=== PATIENT | female | born 1970 | race Caucasian/White ===

== ENCOUNTER 2020-11-01 09:08 | Emergency (ER) | payer BC, OTHER ==
[2020-11-01 09:21] VITALS: RESP 18
--- NOTE | 2020-11-01 10:14 | ED ---
Back Pain HPI - General Chief Complaint: Back Pain/Injury Stated Complaint: post stem cell transplant, back pain Time Seen by Provider: 11/01/20 09:33 Source: patient, RN notes reviewed Limitations: no limitations - History of Present Illness Initial Comments: This a 50-year-old female presents emergency Department with chief complaint of back pain. Patient states that she has [facility] [place]. Patient states his happened on October 18. She states she had no issues over the last few days she developed some GI discomfort states that she had nausea, diarrhea. Patient states that she started having low back pain and which she states she had bodyaches and was concerned this may be related denies any bowel bladder incontinence or retention she states she has some pain and recent her legs which is normal. - Related Data Home Medications Medication Instructions Recorded Confirmed Acetaminophen Tab [Tylenol Tab] 1,000 mg PO Q6HR PRN 11/01/20 11/01/20 Efa Sirt 3 tab PO BID 11/01/20 11/01/20 Fluticasone Nasal [place] [Flonase 2 spr EA NOSTRIL DAILY PRN 11/01/20 11/01/20 Nasal [place]] Glucos Sul 2Kcl/MSM/Chond/C/Mn 1 cap PO BID 11/01/20 11/01/20 [Glucosamine Chondroitin Cap] Gralise 300mg 300 mg PO HS 11/01/20 11/01/20 HYDROcodone/APAP 5-325MG [[place] 1 - 2 tab PO TID PRN 11/01/20 11/01/20 5-325] Omeprazole 20 mg PO DAILY 11/01/20 11/01/20 Vasculosirt 5 tab PO DAILY 11/01/20 11/01/20 hydroCHLOROthiazide [Hydrodiuril] 25 mg PO DAILY PRN 11/01/20 11/01/20 tiZANidine [Zanaflex] 4 mg PO HS 11/01/20 11/01/20 Allergies Allergy/AdvReac Type Severity Reaction Status Date / Time Penicillins Allergy Unknown Verified 11/01/20 10:10 Review of Systems ROS Statement: Those systems with pertinent positive or pertinent negative responses have been documented in the HPI. ROS Other: All systems not noted in ROS Statement are negative. Past Medical History Past Medical History: Osteoarthritis (OA) Additional Past Medical History / Comment(s): bulging discs in neck and back and pinched nerves. bone marrow transplant. History of Any Multi-Drug Resistant Organisms: None Reported Past Surgical History: Cholecystectomy, Hysterectomy Additional Past Surgical History / Comment(s): bone marrow transplant, ovarian cyst removal Past Psychological History: No Psychological Hx Reported Smoking Status: Current every day smoker Past Alcohol Use History: None Reported Past Drug Use History: None Reported General Exam Limitations: no limitations General appearance: alert, in no apparent distress Head exam: Present: atraumatic, normocephalic, normal inspection Respiratory exam: Present: normal lung sounds bilaterally. Absent: respiratory distress, wheezes, rales, rhonchi, stridor Cardiovascular Exam: Present: regular rate, normal rhythm, normal heart sounds. Absent: systolic murmur, diastolic murmur, rubs, gallop, clicks GI/Abdominal exam: Present: soft, normal bowel sounds. Absent: distended, tenderness, guarding, rebound, rigid Extremities exam: Present: normal inspection, full ROM, normal capillary refill, other (Lower extremity neurovascular intact equal and equal warmth). Absent: tenderness, pedal edema, joint swelling, calf tenderness Back exam: Present: full ROM, tenderness, paraspinal tenderness. Absent: vertebral tenderness Neurological exam: Present: alert, oriented X3 Course Vital Signs 11/01/20 09:13 Temperature 98.6 F Pulse Rate 102 H Respiratory 18 Rate Blood Pressure 157/94 O2 Sat by Pulse 96 Oximetry Medical Decision Making - Medical Decision Making I did update patient's physician who performed a procedure there are no inflammatory changes CRP is essentially negative. Patient has no fever. Patient most likely of viral GI, exacerbation of her back pain. Patient will follow-up in office and will be contacted by physician. - Lab Data Result diagrams: 11/01/20 10:04 11/01/20 10:04 Lab Results 11/01/20 11/01/20 11/01/20 Range/Units 10:04 10:04 10:04 WBC 11.1 H (3.8-10.6) k/uL RBC 4.69 (3.80-5.40) m/uL Hgb 14.6 (11.4-16.0) gm/dL Hct 42.5 (34.0-46.0) % MCV 90.8 (80.0-100.0) fL MCH 31.1 (25.0-35.0) pg MCHC 34.2 (31.0-37.0) g/dL RDW 12.6 (11.5-15.5) % Plt Count 368 (150-450) k/uL MPV 7.2 Neutrophils % 72 % Lymphocytes % 21 % Monocytes % 4 % Eosinophils % 1 % Basophils % 0 % Neutrophils # 8.0 H (1.3-7.7) k/uL Lymphocytes # 2.4 (1.0-4.8) k/uL Monocytes # 0.5 (0-1.0) k/uL Eosinophils # 0.1 (0-0.7) k/uL Basophils # 0.0 (0-0.2) k/uL Sodium 139 (137-145) mmol/L Potassium 4.5 (3.5-5.1) mmol/L Chloride 103 (98-107) mmol/L Carbon Dioxide 27 (22-30) mmol/L Anion Gap 9 mmol/L BUN 18 H (7-17) mg/dL Creatinine 0.62 (0.52-1.04) mg/dL Est GFR (CKD-EPI)AfAm >90 (>60 ml/min/1.73 sqM) Est GFR (CKD-EPI)NonAf >90 (>60 ml/min/1.73 sqM) Glucose 107 H (74-99) mg/dL Plasma Lactic Acid Augie 1.0 (0.7-2.0) mmol/L Calcium 9.8 (8.4-10.2) mg/dL Total Bilirubin 0.3 (0.2-1.3) mg/dL AST 34 (14-36) U/L ALT 57 H (4-34) U/L Alkaline Phosphatase 105 (38-126) U/L C-Reactive Protein 3.6 H (<1.0) mg/dL Total Protein 7.7 (6.3-8.2) g/dL Albumin 4.8 (3.5-5.0) g/dL Disposition Clinical Impression: Back pain, Viral illness Disposition: HOME SELF-CARE Condition: Stable Instructions (If sedation given, give patient instructions): Back Pain (ED) Additional Instructions: Please return to the Emergency Department if symptoms worsen or any other concerns. Is patient prescribed a controlled substance at d/c from ED?: No Referrals: Ze Muhammad MD [Primary Care Provider] - 1-2 days Time of Disposition: 13:06
[2020-11-01 10:29] LABS: Basophils % (A) 0 %; Eosinophils # (A) 0.1 k/uL (0-0.7); Eosinophils % (A) 1 %; HCT 42.5 % (34.0-46.0); HGB 14.6 gm/dL (11.4-16.0); Lymphocytes # (A) 2.4 k/uL (1.0-4.8); Lymphocytes % (A) 21 %; MCH 31.1 pg (25.0-35.0); MCHC 34.2 g/dL (31.0-37.0); MCV 90.8 fL (80.0-100.0); Mean Platelet Volume 7.2; Monocytes # (A) 0.5 k/uL (0-1.0); Monocytes % (A) 4 %; Neutrophils % (A) 72 %; Platelet Count 368 k/uL (150-450); RBC 4.69 m/uL (3.80-5.40); RDW 12.6 % (11.5-15.5); WBC 11.1 k/uL (3.8-10.6)
[2020-11-01] MEDS ORDERED: HYDROmorphone 1 MG/ML 1 ML SYRINGE IVP STA ×2 (10:40→13:04)
[2020-11-01] MEDS ORDERED: ONDANSETRON 4 MG/2 ML VIAL IVP STA (10:40)
[2020-11-01 10:49] LABS: ALT 57 U/L (4-34); AST 34 U/L (14-36); African American GFR (CKD) >90 (>60 ml/min/1.73 sqM); Albumin 4.8 g/dL (3.5-5.0); Alkaline Phosphatase 105 U/L (38-126); Anion Gap 9 mmol/L; Blood Urea Nitrogen 18 mg/dL (7-17); C Reactive Protein 3.6 mg/dL (<1.0); Calcium 9.8 mg/dL (8.4-10.2); Carbon Dioxide 27 mmol/L (22-30); Chloride 103 mmol/L (98-107); Glucose 107 mg/dL (74-99); Non-African American GFR(CKD) >90 (>60 ml/min/1.73 sqM); Potassium 4.5 mmol/L (3.5-5.1); Sodium 139 mmol/L (137-145); Total Bilirubin 0.3 mg/dL (0.2-1.3); Total Protein 7.7 g/dL (6.3-8.2)
--- NOTE | 2020-11-01 11:43 | CT ---
EXAMINATION TYPE: CT lumbar spine w con DATE OF EXAM: 11/01/2020 COMPARISON: None HISTORY: Post stem cell transplant, pain CT DLP: [id number] mGycm Automated exposure control for dose reduction was used. CONTRAST: CT scan of the lumbar is performed with IV Contrast, patient injected with 100 mL of Isovue 300. Enhanced CT of the lumbar spine was performed. Bone and soft tissue window settings are submitted as well as coronal and sagittal reconstructions. L1-L2: Normal disc space height. No disc herniation protrusion or central stenosis. No facet joint arthropathy. No evidence for foraminal encroachment. L2-L3: Normal disc space height. No disc herniation protrusion or central stenosis. No facet joint arthropathy. No evidence for foraminal encroachment. L3-L4: Normal disc space height. No disc herniation protrusion or central stenosis. No facet joint arthropathy. No evidence for foraminal encroachment. L4-L5: Moderate degenerative disc space narrowing. Circumferential disc bulge greatest posteriorly wi th partial encapsulating spur. Effacement ventral thecal sac with [id number] central stenosis. L5-S1: Mild degenerative disc space narrowing. Posterior disc bulge with effacement of the ventral th ecal sac. Bilateral lateral recess stenosis suggested. No evidence for central stenosis or oscar shaji iation. No evidence for discitis or paraspinal abscess. IMPRESSION: 1. Degenerative disc disease L4-5 L5-S1. Central stenosis at L4-5. Bilateral lateral recess stenosis at L5-S1.
[2020-11-01 13:19] LABS: Erythrocyte Sedimentation Rate 23 mm/hr (0-20)
[2020-11-01 13:54] VITALS: BP 133/87; PULSE 82; TEMP 98
== END 2020-11-01 13:54 | disposition home or self-care (01) ==
LOC: EC 09:08
DX: B34.9 Viral infection, unspecified (principal); M54.5 Low back pain; M19.90 Unspecified osteoarthritis, unspecified site; F17.200 Nicotine dependence, unspecified, uncomplicated; Z79.899 Other long term (current) drug therapy; Z88.0 Allergy status to penicillin; Z94.84 Stem cells transplant status
CPT/HCPCS: 36415; 80053; 85652; 83605; 85025; 86140; 72132; 96374; 96375; 96376; 99284; J2405; J1170; Q9967

== ENCOUNTER 2020-11-09 23:41 | Emergency (ER) | payer BC ==
[2020-11-09 23:49] VITALS: TEMP 98
[2020-11-10] MEDS ORDERED: ORPHENADRINE 30 MG/ML 2 ML VIAL IM STA (01:07)
[2020-11-10] MEDS ORDERED: HYDROmorphone 1 MG/ML 1 ML SYRINGE IM STA (01:07)
[2020-11-10 01:29] VITALS: RESP 18
[2020-11-10] MEDS ORDERED: HYDROmorphone 0.5 MG/0.5 ML SYRINGE IM STA (02:36)
--- NOTE | 2020-11-10 02:40 | ED ---
General Adult HPI - General Chief complaint: Back Pain/Injury Stated complaint: Back Pain Time Seen by Provider: 11/10/20 00:25 Source: patient Mode of arrival: ambulatory Limitations: no limitations - History of Present Illness Initial comments: 50-year-old female with a past medical history of chronic back pain presents to the emergency room for a chief complaint of back pain. Patient reports that about 3 weeks ago she had a stem cell transplant into her vertebrae to help with her pain. However patient reports that it has not been helping. Patient states she is taking pain medications at home but is supposed to be getting off of them because of the stem cell transplant. Patient states tonight she is having too much pain to sit down and so presented to the emergency room. Patient denies any weakness of the legs, bladder bowel changes, saddle anesthesia, or fevers. Patient has been taking steroids which doesn't seem to be helping. She is also a [place] at home.Patient has no other complaints at this time including shortness of breath, chest pain, abdominal pain, nausea or vomiting, headache, or visual changes. - Related Data Home Medications Medication Instructions Recorded Confirmed Acetaminophen Tab [Tylenol Tab] 1,000 mg PO Q6HR PRN 11/01/20 11/01/20 Efa Sirt 3 tab PO BID 11/01/20 11/01/20 Fluticasone Nasal [place] [Flonase 2 spr EA NOSTRIL DAILY PRN 11/01/20 11/01/20 Nasal [place]] Glucos Sul 2Kcl/MSM/Chond/C/Mn 1 cap PO BID 11/01/20 11/01/20 [Glucosamine Chondroitin Cap] Gralise 300mg 300 mg PO HS 11/01/20 11/01/20 HYDROcodone/APAP 5-325MG [[place] 1 - 2 tab PO TID PRN 11/01/20 11/01/20 5-325] Omeprazole 20 mg PO DAILY 11/01/20 11/01/20 Vasculosirt 5 tab PO DAILY 11/01/20 11/01/20 hydroCHLOROthiazide [Hydrodiuril] 25 mg PO DAILY PRN 11/01/20 11/01/20 tiZANidine [Zanaflex] 4 mg PO HS 11/01/20 11/01/20 Allergies Allergy/AdvReac Type Severity Reaction Status Date / Time Penicillins Allergy Unknown Verified 11/09/20 23:49 Review of Systems ROS Statement: Those systems with pertinent positive or pertinent negative responses have been documented in the HPI. ROS Other: All systems not noted in ROS Statement are negative. Past Medical History Past Medical History: Osteoarthritis (OA) Additional Past Medical History / Comment(s): bulging discs in neck and back and pinched nerves. bone marrow transplant. History of Any Multi-Drug Resistant Organisms: None Reported Past Surgical History: Cholecystectomy, Hysterectomy Additional Past Surgical History / Comment(s): bone marrow transplant, ovarian cyst removal Past Psychological History: No Psychological Hx Reported Smoking Status: Current every day smoker Past Alcohol Use History: None Reported Past Drug Use History: None Reported General Exam Limitations: no limitations General appearance: alert, in no apparent distress Head exam: Present: atraumatic, normocephalic, normal inspection Eye exam: Present: normal appearance, PERRL, EOMI. Absent: scleral icterus, conjunctival injection, periorbital swelling ENT exam: Present: normal exam, mucous membranes moist Neck exam: Present: normal inspection, full ROM. Absent: tenderness Respiratory exam: Present: normal lung sounds bilaterally. Absent: respiratory distress, wheezes Cardiovascular Exam: Present: regular rate, normal rhythm, normal heart sounds GI/Abdominal exam: Present: soft, normal bowel sounds. Absent: distended, tenderness, guarding, rebound, rigid Back exam: Present: vertebral tenderness (Right-sided paraspinal tenderness.) Course Vital Signs 11/09/20 11/10/20 23:46 01:28 Temperature 98 F Pulse Rate 105 H 103 H Respiratory 20 18 Rate Blood Pressure 151/92 115/87 O2 Sat by Pulse 98 98 Oximetry Medical Decision Making - Medical Decision Making Patient presents for back pain that is chronic in nature. Pain has persisted even after stem cell transplant. Patient was uncomfortable tonight so presented to the emergency room. Patient did have a CAT scan several days ago for similar complaints. This showed degenerative disc disease and central stenosis. There is also bilateral lateral recess stenosis. Patient has not had any fevers. Patient was given pain medication and did have significant improvement symptoms. Able to sit comfortably. Patient will be given one more dose of pain medication before discharge home. Patient will follow up with her doctor tomorrow. Disposition Clinical Impression: Back pain Disposition: HOME SELF-CARE Condition: Good Instructions (If sedation given, give patient instructions): Acute Low Back Pain (ED) Additional Instructions: Please follow-up with your doctor tomorrow. If you have worsening symptoms return to the emergency room. Is patient prescribed a controlled substance at d/c from ED?: No Referrals: Ze Muhammad MD [Primary Care Provider] - 1-2 days Time of Disposition: 02:40
[2020-11-10 02:55] VITALS: BP 130/71; PULSE 80
== END 2020-11-10 02:55 | disposition home or self-care (01) ==
LOC: EC 23:41
DX: M54.9 Dorsalgia, unspecified (principal); G89.29 Other chronic pain; M19.90 Unspecified osteoarthritis, unspecified site; F17.200 Nicotine dependence, unspecified, uncomplicated; Z88.0 Allergy status to penicillin; Z90.49 Acquired absence of other specified parts of digestive tract; Z90.710 Acquired absence of both cervix and uterus
CPT/HCPCS: 99283; 96372 ×3; J2360; J1170 ×2

== ENCOUNTER 2020-11-15 20:18 | Emergency (ER) | payer BC ==
[2020-11-15 21:03] VITALS: TEMP 98.4
[2020-11-15] MEDS ORDERED: DIAZEPAM 5 MG/ML 2 ML INJ IVP PRN (21:53)
[2020-11-15] MEDS ORDERED: ONDANSETRON 4 MG/2 ML VIAL IVP STA (21:53)
[2020-11-15] MEDS ORDERED: KETOROLAC 15 MG/ML 1 ML VIAL IVP STA (21:53)
[2020-11-15] MEDS ORDERED: diphenhydrAMINE 50 MG/ML 1 ML VIAL IVP PRN (21:53)
[2020-11-15] MEDS ORDERED: HYDROmorphone 1 MG/ML 1 ML SYRINGE IVP PRN (21:53)
[2020-11-15] MEDS ORDERED: HYDROmorphone 1 MG/ML 1 ML SYRINGE IVP STA (21:53)
[2020-11-15] MEDS ORDERED: SODIUM CHLORIDE 0.9% 1,000 ML IV STA ×2 (21:53)
[2020-11-15] MEDS ORDERED: VANCOMYCIN IV PER PHARMACY 1 EACH MISC MISCELLANE PRN (21:55)
--- NOTE | 2020-11-15 22:08 | ED ---
Recheck HPI - General Chief Complaint: Recheck/Abnormal Lab/Rx Stated Complaint: Post Op Infection, sent by dr to be admitted Time Seen by Provider: 11/15/20 21:35 Source: patient, RN notes reviewed, old records reviewed Mode of arrival: ambulatory Limitations: no limitations - History of Present Illness Initial Comments: This is a 50-year-old female presenting with acute on chronic back pain today. Back pain that has been steadily increasing as of late. Patient does follow with pain management and on 10/18/20 had a bone marrow transplant for pain control. Patient does have history of disc disease. Patient to persistent pain and recent MRI home and was told by prescribing physician to come to the ER for further management. Patient denying any fevers has occasionally had chills. No loss of bowel or bladder. She does get numbness and tingling down both legs Complaint: needs IV antibiotics, other (Evaluation of MRI findings) -: days(s) Initial Visit For: other (Back pain) Returns Today for: Called Because of Abnormal Lab/Test (Abnormal MRI), needs IV antibiotics, persistent/worsening pain related to initial visit Symptoms Since Prior Visit: worsening pain Context: called for abnormal lab result Associated Symptoms: chills Treatments Prior to Arrival: home treatments, Given Pain Meds on - Related Data Home Medications Medication Instructions Recorded Confirmed Gralise 300mg 300 mg PO HS 11/01/20 11/15/20 Omeprazole 20 mg PO DAILY 11/01/20 11/15/20 hydroCHLOROthiazide [Hydrodiuril] 25 mg PO DAILY PRN 11/01/20 11/15/20 tiZANidine [Zanaflex] 4 mg PO HS 11/01/20 11/15/20 Ibuprofen [Motrin] 800 mg PO TID PRN 11/15/20 11/15/20 oxyCODONE-APAP 5-325MG [Percocet 1 tab PO Q6HR PRN 11/15/20 11/15/20 5-325 mg] Allergies Allergy/AdvReac Type Severity Reaction Status Date / Time Penicillins Allergy Unknown Verified 11/15/20 22:39 Review of Systems ROS Statement: Those systems with pertinent positive or pertinent negative responses have been documented in the HPI. ROS Other: All systems not noted in ROS Statement are negative. Past Medical History Past Medical History: Osteoarthritis (OA) Additional Past Medical History / Comment(s): bulging discs in neck and back and pinched nerves. bone marrow transplant. History of Any Multi-Drug Resistant Organisms: None Reported Past Surgical History: Section, Cholecystectomy, Hysterectomy Additional Past Surgical History / Comment(s): bone marrow transplant, ovarian cyst removal Past Psychological History: No Psychological Hx Reported Smoking Status: Current every day smoker Past Alcohol Use History: None Reported Past Drug Use History: None Reported General Exam General appearance: alert, in no apparent distress Head exam: Present: atraumatic, normocephalic, normal inspection Eye exam: Present: normal appearance, PERRL, EOMI. Absent: scleral icterus, conjunctival injection, periorbital swelling ENT exam: Present: normal exam, mucous membranes moist Neck exam: Present: normal inspection. Absent: tenderness, meningismus, lymph adenopathy Respiratory exam: Present: normal lung sounds bilaterally. Absent: respiratory distress, wheezes, rales, rhonchi, stridor Cardiovascular Exam: Present: regular rate, normal rhythm, normal heart sounds. Absent: systolic murmur, diastolic murmur, rubs, gallop, clicks GI/Abdominal exam: Present: soft, normal bowel sounds. Absent: distended, tenderness, guarding, rebound, rigid Extremities exam: Present: normal inspection, full ROM, normal capillary refill. Absent: tenderness, pedal edema, joint swelling, calf tenderness Back exam: Present: normal inspection Neurological exam: Present: alert, oriented X3, CN II-XII intact Psychiatric exam: Present: normal affect, normal mood Skin exam: Present: warm, dry, intact, normal color. Absent: rash Course Vital Signs 11/15/20 20:58 Temperature 98.4 F Pulse Rate 93 Respiratory 18 Rate Blood Pressure 147/79 O2 Sat by Pulse 98 Oximetry - Reevaluation(s) Reevaluation #1: 11/15/20 22:07 Medical records reviewed Reevaluation #2: 11/15/20 22:07 MRI results are obtained Patient does have discitis L4-L5 with phlegmon Patient has no focal neurological findings 11/16/20 00:17 Patient symptoms are improved here in the ER Reevaluation #3: 11/16/20 00:17 Patient informed of results and questions answered - Consultations Consultation #1: Spoke with Dr. Tres Khan MD PMnR. Patient's procedure recommends transfer [facility] Consultation #2: Spoke with [facility] emergency department to transfer Medical Decision Making - Medical Decision Making 42 female DF for evaluation has vertebral osteomyelitis discitis and abscess, will be transferred for IV antibiotics and surgical evaluation - Lab Data Result diagrams: 11/15/20 22:10 11/15/20 22:10 Lab Results 11/15/20 11/15/20 11/15/20 Range/Units 22:10 22:10 22:10 WBC 16.0 H (3.8-10.6) k/uL RBC 4.57 (3.80-5.40) m/uL Hgb 14.2 (11.4-16.0) gm/dL Hct 42.6 (34.0-46.0) % MCV 93.2 (80.0-100.0) fL MCH 31.0 (25.0-35.0) pg MCHC 33.3 (31.0-37.0) g/dL RDW 13.1 (11.5-15.5) % Plt Count 423 (150-450) k/uL MPV 7.0 Neutrophils % 64 % Lymphocytes % 29 % Monocytes % 4 % Eosinophils % 2 % Basophils % 0 % Neutrophils # 10.2 H (1.3-7.7) k/uL Lymphocytes # 4.7 (1.0-4.8) k/uL Monocytes # 0.6 (0-1.0) k/uL Eosinophils # 0.3 (0-0.7) k/uL Basophils # 0.1 (0-0.2) k/uL ESR 24 H (0-20) mm/hr PT 9.3 (9.0-12.0) sec INR 0.8 (<1.2) APTT 21.9 L (22.0-30.0) sec Sodium 136 L (137-145) mmol/L Potassium 4.6 (3.5-5.1) mmol/L Chloride 104 (98-107) mmol/L Carbon Dioxide 23 (22-30) mmol/L Anion Gap 9 mmol/L BUN 27 H (7-17) mg/dL Creatinine 0.61 (0.52-1.04) mg/dL Est GFR (CKD-EPI)AfAm >90 (>60 ml/min/1.73 sqM) Est GFR (CKD-EPI)NonAf >90 (>60 ml/min/1.73 sqM) Glucose 98 (74-99) mg/dL Plasma Lactic Acid Augie (0.7-2.0) mmol/L Calcium 9.4 (8.4-10.2) mg/dL Phosphorus 4.5 (2.5-4.5) mg/dL Magnesium 2.2 (1.6-2.3) mg/dL Total Bilirubin 0.2 (0.2-1.3) mg/dL AST 29 (14-36) U/L ALT 75 H (4-34) U/L Alkaline Phosphatase 93 (38-126) U/L Creatine Kinase 41 (30-135) U/L C-Reactive Protein 2.4 H (<1.0) mg/dL Total Protein 7.1 (6.3-8.2) g/dL Albumin 4.4 (3.5-5.0) g/dL 11/15/20 Range/Units 22:10 WBC (3.8-10.6) k/uL RBC (3.80-5.40) m/uL Hgb (11.4-16.0) gm/dL Hct (34.0-46.0) % MCV (80.0-100.0) fL MCH (25.0-35.0) pg MCHC (31.0-37.0) g/dL RDW (11.5-15.5) % Plt Count (150-450) k/uL MPV Neutrophils % % Lymphocytes % % Monocytes % % Eosinophils % % Basophils % % Neutrophils # (1.3-7.7) k/uL Lymphocytes # (1.0-4.8) k/uL Monocytes # (0-1.0) k/uL Eosinophils # (0-0.7) k/uL Basophils # (0-0.2) k/uL ESR (0-20) mm/hr PT (9.0-12.0) sec INR (<1.2) APTT (22.0-30.0) sec Sodium (137-145) mmol/L Potassium (3.5-5.1) mmol/L Chloride (98-107) mmol/L Carbon Dioxide (22-30) mmol/L Anion Gap mmol/L BUN (7-17) mg/dL Creatinine (0.52-1.04) mg/dL Est GFR (CKD-EPI)AfAm (>60 ml/min/1.73 sqM) Est GFR (CKD-EPI)NonAf (>60 ml/min/1.73 sqM) Glucose (74-99) mg/dL Plasma Lactic Acid Augie 1.6 (0.7-2.0) mmol/L Calcium (8.4-10.2) mg/dL Phosphorus (2.5-4.5) mg/dL Magnesium (1.6-2.3) mg/dL Total Bilirubin (0.2-1.3) mg/dL AST (14-36) U/L ALT (4-34) U/L Alkaline Phosphatase (38-126) U/L Creatine Kinase (30-135) U/L C-Reactive Protein (<1.0) mg/dL Total Protein (6.3-8.2) g/dL Albumin (3.5-5.0) g/dL Disposition Clinical Impression: Epidural abscess, L2-L5, Back pain, Diskitis, Vertebral osteomyelitis Disposition: TRANSFER TO [facility]UNIT Condition: Good Referrals: Ze Muhammad MD [Primary Care Provider] - 1-2 days - Out of Hospital Transfer - Req. Specs Out of Hospital Transfer - Requested Specifics: Other Emergency Center ([facility])
[2020-11-15] MEDS ORDERED: VANCOMYCIN 1,500 MG in SODIUM CHLORIDE 0.9% 250 ML IVPB ONE (22:15)
[2020-11-15 22:32] LABS: Basophils # (A) 0.1 k/uL (0-0.2); Basophils % (A) 0 %; Eosinophils # (A) 0.3 k/uL (0-0.7); Eosinophils % (A) 2 %; HCT 42.6 % (34.0-46.0); HGB 14.2 gm/dL (11.4-16.0); Lymphocytes # (A) 4.7 k/uL (1.0-4.8); Lymphocytes % (A) 29 %; MCHC 33.3 g/dL (31.0-37.0); MCV 93.2 fL (80.0-100.0); Monocytes # (A) 0.6 k/uL (0-1.0); Monocytes % (A) 4 %; Neutrophils # (A) 10.2 k/uL (1.3-7.7); Neutrophils % (A) 64 %; Platelet Count 423 k/uL (150-450); RBC 4.57 m/uL (3.80-5.40); RDW 13.1 % (11.5-15.5)
[2020-11-15 22:45] LABS: ALT 75 U/L (4-34); AST 29 U/L (14-36); African American GFR (CKD) >90 (>60 ml/min/1.73 sqM); Albumin 4.4 g/dL (3.5-5.0); Alkaline Phosphatase 93 U/L (38-126); Anion Gap 9 mmol/L; Blood Urea Nitrogen 27 mg/dL (7-17); C Reactive Protein 2.4 mg/dL (<1.0); Calcium 9.4 mg/dL (8.4-10.2); Carbon Dioxide 23 mmol/L (22-30); Chloride 104 mmol/L (98-107); Creatine Kinase 41 U/L (30-135); Glucose 98 mg/dL (74-99); Magnesium 2.2 mg/dL (1.6-2.3); Non-African American GFR(CKD) >90 (>60 ml/min/1.73 sqM); Phosphorus 4.5 mg/dL (2.5-4.5); Potassium 4.6 mmol/L (3.5-5.1); Sodium 136 mmol/L (137-145); Total Bilirubin 0.2 mg/dL (0.2-1.3); Total Protein 7.1 g/dL (6.3-8.2)
[2020-11-15 23:00] LABS: INR 0.8 (<1.2); Partial Thromboplastin Time 21.9 sec (22.0-30.0); Prothrombin Time 9.3 sec (9.0-12.0)
[2020-11-15 23:33] LABS: Erythrocyte Sedimentation Rate 24 mm/hr (0-20)
[2020-11-16] MEDS ORDERED: HYDROmorphone 1 MG/ML 1 ML SYRINGE IVP STA (00:38)
[2020-11-16 00:51] VITALS: BP 135/78; PULSE 99; RESP 16
[2020-11-16] MEDS ORDERED: VANCOMYCIN 1,500 MG in SODIUM CHLORIDE 0.9% 250 ML IVPB SCH (08:00)
== END 2020-11-16 01:04 ==
LOC: EC 20:18
DX: G06.2 Extradural and subdural abscess, unspecified (principal); M46.46 Discitis, unspecified, lumbar region; M46.26 Osteomyelitis of vertebra, lumbar region; F17.200 Nicotine dependence, unspecified, uncomplicated; Z79.1 Long term (current) use of non-steroidal anti-inflammatories (NSAID); Z79.899 Other long term (current) drug therapy; Z88.0 Allergy status to penicillin
CPT/HCPCS: 36415; 93005; 80053; 85652; 82550; 83605; 83735; 84100; 85025; 85610; 85730; 86140; 87040; 96365; 96375 ×4; 96376; 99285; J3370; J2405; J0696; J1170 ×2; J1885